=== PATIENT | male | born 1975 | race Hispanic/Latino ===

== ENCOUNTER 2018-09-13 19:30 | Emergency (ER) | payer BC ==
--- OUTSIDE RECORDS SUMMARY | 2018-09-13 19:35 | XMS REPORT ---
:1975 Author Organization eClinicalWorks Care Team Providers Name Role Phone Daisy Huy Provider Role Unavailable Allergies, Adverse Reactions, Alerts Substance Reaction Event Type N.K.D.A. Info Not Available Non Drug Allergy Problems Problem Type Condition Code Onset Dates Condition Status Problem Pure hypercholesterolemia E78.00 Active Problem Type 2 diabetes mellitus without E11.9 Active complication, without long-term current use of insulin Problem Essential hypertension I10 Active Assessment Essential hypertension I10 Active Assessment Pure hypercholesterolemia E78.00 Active Assessment Type 2 diabetes mellitus without E11.9 Active complication, without long-term current use of insulin Medications Medication Code Code Instructions Start End Status Dosage System Date Date Simvastatin ND 43803932247 20 MG Orally Active 1 tablet Once a day in the evening Farxiga ND 32124713792 5mg By Mouth August Active [facility] 2018 Lisinopril ND 03655572201 10 MG Orally Active 1 tablet Once a day MetFORMIN HCl ND 19276503014 750 MG Orally Active 1 tablet ER twice daily with evening meal Results Name Result Date Reference Range Unit Abnormality Flag HEMOGLOBIN A1C ----A1C 7.9 [id number] Summary Purpose eClinicalWorks Submission
--- OUTSIDE RECORDS SUMMARY | 2018-09-13 19:35 | XMS REPORT ---
:1975 Author Organization eClinicalWorks Care Team Providers Name Role Phone Tahmina Hu Provider Role Unavailable Allergies No Known Allergies Problems Problem Type Condition Code Onset Dates Condition Status Problem Pure hypercholesterolemia E78.00 Active Problem Type 2 diabetes mellitus without E11.9 Active complication, without long-term current use of insulin Problem Essential hypertension I10 Active Medications No Known Medications Results No Known Results Summary Purpose eClinicalWorks Submission
--- OUTSIDE RECORDS SUMMARY | 2018-09-13 19:35 | XMS REPORT ---
:1975 Author Organization eClinicalWorks Care Team Providers Name Role Phone Tahmina Hu Provider Role Unavailable Allergies, Adverse Reactions, Alerts Substance Reaction Event Type N.K.D.A. Info Not Available Non Drug Allergy Problems Problem Type Condition Code Onset Dates Condition Status Problem Pure hypercholesterolemia E78.00 Active Problem Type 2 diabetes mellitus without E11.9 Active complication, without long-term current use of insulin Problem Essential hypertension I10 Active Assessment Essential hypertension I10 Active Assessment Type 2 diabetes mellitus without E11.9 Active complication, without long-term current use of insulin Medications Medication Code Code Instructions Start End Status Dosage System Date Date Simvastatin ND 56386939071 20 MG Orally Active 1 tablet Once a day in the evening Lisinopril [facility] 94598579942 10 MG Orally Active 1 tablet Once a day MetFORMIN HCl ND 87112303505 750 MG Orally Active 1 tablet ER twice daily with evening meal Farxiga ND 05639951970 5mg By Mouth July 09August Active 1 [facility] 2017 Results No Known Results Summary Purpose eClinicalWorks Submission
--- OUTSIDE RECORDS SUMMARY | 2018-09-13 19:35 | XMS REPORT ---
[...] Start End Status Dosage System Date Date MetFORMIN HCl ND 52293280216 750 MG Orally Active 1 tablet ER twice daily with evening meal Farxiga ND 86698452200 5mg By Mouth August Active 1 [facility] 2018 Lisinopril ND 64903922885 10 MG Orally Active 1 tablet Once a day Simvastatin ND 56907181446 20 MG Orally Active 1 tablet Once a day in the evening Results No Known Results Summary Purpose eClinicalWorks Submission
[2018-09-13] MEDS ORDERED: METOCLOPRAMIDE 10 MG/2mL INJ ONE (20:52)
[2018-09-13] MEDS ORDERED: KETOROLAC 30 MG/ML INJ ONE (20:52)
[2018-09-13] MEDS ORDERED: NA CHLORIDE 0.9% 1,000 ML ONE (20:52)
--- NOTE | 2018-09-13 21:29 | EDPHYS ---
Physician Documentation [facility] Name: Anup Ordonez Age: 42 yrs Sex: Male : 1975 Arrival Date: 09/13/2018 Time: 19:31 Bed 14 Private MD: ED Physician Sinan Cabrera HPI: 09/13 21:23 This 42 yrs old Male presents to ER via Ambulatory with complaints of Cold kb Symptoms, Migraine. 21:23 The patient or guardian reports cough, that is intermittent, described as mild, with no kb sputum. The patient has experienced similar episodes in the past. The patient has not recently seen a physician. 21:24 Onset: The symptoms/episode began/occurred 3 day(s) ago. Severity of symptoms: At their kb worst the symptoms were moderate, in the emergency department the symptoms are unchanged. Modifying factors: The symptoms are alleviated by nothing, the symptoms are aggravated by nothing. Associated signs and symptoms: The patient has no apparent associated signs or symptoms. Pt reports cough, congestion and migraine since Wednesday. Historical: - Allergies: 19:38 No Known Allergies; aj1 - Home Meds: 19:38 Metformin Oral [Active]; Lisinopril Oral [Active]; Simvastatin Oral [Active]; aj1 - PMHx: 19:38 Diabetes - NIDDM; Hypertension; Hyperlipidemia; aj1 - Immunization history:: Flu vaccine is not up to date. - Social history:: Smoking status: Patient/guardian denies using tobacco. - Ebola Screening: : Patient denies travel to an Ebola-affected area in the 21 days before illness onset. ROS: 21:27 Constitutional: Negative for fever, chills, and weight loss, Neck: Negative for injury, kb pain, and swelling, Cardiovascular: Negative for chest pain, palpitations, and edema, Abdomen/GI: Negative for abdominal pain, nausea, vomiting, diarrhea, and constipation, Back: Negative for injury and pain, : Negative for injury, bleeding, discharge, and swelling, MS/Extremity: Negative for injury and deformity, Skin: Negative for injury, rash, and discoloration. 21:27 ENT: Positive for sinus congestion. 21:27 Respiratory: Positive for cough, Negative for dyspnea on exertion, hemoptysis, orthopnea, pleurisy, shortness of breath, sputum production, wheezing. 21:27 Neuro: Positive for headache. Exam: 21:28 Constitutional: This is a well developed, well nourished patient who is awake, alert, kb and in no acute distress. Head/Face: Normocephalic, atraumatic. ENT: Nares patent. No nasal discharge, no septal abnormalities noted. Tympanic membranes are normal and external auditory canals are clear. Oropharynx with no redness, swelling, or masses, exudates, or evidence of obstruction, uvula midline. Mucous membranes moist. Neck: Trachea midline, no thyromegaly or masses palpated, and no cervical lymphadenopathy. Supple, full range of motion without nuchal rigidity, or vertebral point tenderness. No Meningismus. Chest/axilla: Normal chest wall appearance and motion. Nontender with no deformity. No lesions are appreciated. Cardiovascular: Regular rate and rhythm with a normal S1 and S2. No gallops, murmurs, or rubs. Normal PMI, no JVD. No pulse deficits. Respiratory: Lungs have equal breath sounds bilaterally, clear to auscultation and percussion. No rales, rhonchi or wheezes noted. No increased work of breathing, no retractions or nasal flaring. Abdomen/GI: Soft, non-tender, with normal bowel sounds. No distension or tympany. No guarding or rebound. No evidence of tenderness throughout. Skin: Warm, dry with normal turgor. Normal color with no rashes, no lesions, and no evidence of cellulitis. MS/ Extremity: Pulses equal, no cyanosis. Neurovascular intact. Full, normal range of motion. Neuro: Awake and alert, GCS 15, oriented to person, place, time, and situation. Cranial nerves II-XII grossly intact. Motor strength 5/5 in all extremities. Sensory grossly intact. Cerebellar exam normal. Normal gait. Vital Signs: 19:38 BP 133 / 79; Pulse 76; Resp 18; Temp 97.8; Pulse Ox 98% on R/A; Weight 86.18 kg (R); aj1 Height 5 ft. 11 in. (180.34 cm) (R); 21:00 BP 129 / 81; Pulse 79; Resp 18; Pulse Ox 100% on R/A; aa1 22:14 BP 125 / 70; Pulse 77; Resp 18; Temp 98.0; Pulse Ox 97% on R/A; Pain 0/10; aa1 19:38 Body Mass Index 26.50 (86.18 kg, 180.34 cm) aj1 MDM: 19:52 Patient medically screened. kb 21:23 Data reviewed: vital signs, nurses notes. Data interpreted: Pulse oximetry: on room air kb is 98 %. Interpretation: normal. 21:27 Counseling: I had a detailed discussion with the patient and/or guardian regarding: the kb historical points, exam findings, and any diagnostic results supporting the discharge/admit diagnosis, lab results, the need for outpatient follow up, a family practitioner, to return to the emergency department if symptoms worsen or persist or if there are any questions or concerns that arise at home. 09/13 20:07 Order name: Strep; Complete Time: 20:48 kb 09/13 20:07 Order name: Flu; Complete Time: 21:04 kb 09/13 20:48 Order name: Throat Culture EDMS 09/13 20:07 Order name: IV Start; Complete Time: 20:59 kb Administered Medications: 20:50 Drug: NS 0.9% 1000 ml Route: IV; Rate: 1000 ml; Site: right antecubital; aa1 22:15 Follow up: IV Status: Completed infusion; IV Intake: 1000ml aa1 20:50 Drug: Reglan 10 mg Route: IVP; Site: right antecubital; aa1 21:50 Follow up: Response: No adverse reaction; Pain is decreased aa1 20:50 Drug: TORadol - Ketorolac 15 mg Route: IVP; Site: right antecubital; aa1 21:50 Follow up: Response: No adverse reaction; Pain is decreased aa1 Disposition: 09/14 07:12 Co-signature as Attending Physician, Sinan Cabrera MD I agree with the assessment and abram plan of care. Disposition: 09/13/18 21:28 Discharged to Home. Impression: Acute upper respiratory infection, unspecified, Migraine. - Condition is Stable. - Discharge Instructions: Upper Respiratory Infection, Adult, Eieo-gi-Nhak, Migraine Headache, Svgq-eg-Jlry, Viral Respiratory Infection, Kslc-Cg-Aylc. - Medication Reconciliation Form, Thank You Letter, Antibiotic Education, Prescription Opioid Use form. - Follow up: Emergency Department; When: As needed; Reason: Worsening of condition. Follow up: Private Physician; When: 2 - 3 days; Reason: Recheck today's complaints, Continuance of care, Re-evaluation by your physician. Signatures: Dispatcher [employer] EDYara Martin, RASTA BAXTER-Chioma Anaya, RN RN aj1 Makeda Ozuna RN RN aa1 Sinan Cabrera MD MD cha Corrections: (The following items were deleted from the chart) 09/13 22:16 21:28 09/13/2018 21:28 Discharged to Home. Impression: Acute upper respiratory aa1 infection, unspecified; Migraine. Condition is Stable. Forms are Medication Reconciliation Form, Thank You Letter, Antibiotic Education, Prescription Opioid Use. Follow up: Emergency Department; When: As needed; Reason: Worsening of condition. Follow up: Private Physician; When: 2 - 3 days; Reason: Recheck today's complaints, Continuance of care, Re-evaluation by your physician. kb
--- NOTE | 2018-09-13 21:29 | ER ---
Nurse's Notes [facility] Name: Anup Ordonez Age: 42 yrs Sex: Male : 1975 Arrival Date: 09/13/2018 Time: 19:31 Bed 14 Private MD: Diagnosis: Acute upper respiratory infection, unspecified;Migraine Presentation: 09/13 19:36 Presenting complaint: Patient states: "I started with a cold on Wednesday night, but I aj1 suzie got a migraine with it but I've had it since then. I haven't been able to get rid of the migraine or the cold" Reports subjective fever/. Transition of care: patient was not received from another setting of care. Onset of symptoms was September 2018. Risk Assessment: Do you want to hurt yourself or someone else? Patient reports no desire to harm self or others. Initial Sepsis Screen: Does the patient meet any 2 criteria? No. Patient's initial sepsis screen is negative. Does the patient have a suspected source of infection? No. Patient's initial sepsis screen is negative. Care prior to arrival: None. 19:36 Method Of Arrival: Ambulatory [facility] 19:36 Acuity: JOHN 4 aj1 Triage Assessment: 19:38 General: Appears in no apparent distress. comfortable, Behavior is calm, cooperative, aj1 appropriate for age. Pain: Complains of pain in forehead Pain currently is 8 out of 10 on a pain scale. EENT: Reports nasal congestion nasal discharge. Neuro: Level of Consciousness is awake, alert, obeys commands. Cardiovascular: Patient's skin is warm and dry. Respiratory: Reports cough that is persistent Airway is patent Respiratory effort is even, unlabored, Respiratory pattern is regular, symmetrical. Historical: - Allergies: 19:38 No Known Allergies; aj1 - Home Meds: 19:38 Metformin Oral [Active]; Lisinopril Oral [Active]; Simvastatin Oral [Active]; aj1 - PMHx: 19:38 Diabetes - NIDDM; Hypertension; Hyperlipidemia; aj1 - Immunization history:: Flu vaccine is not up to date. - Social history:: Smoking status: Patient/guardian denies using tobacco. - Ebola Screening: : Patient denies travel to an Ebola-affected area in the 21 days before illness onset. Screenin:00 Abuse screen: Denies threats or abuse. Denies injuries from another. Nutritional aa1 screening: No deficits noted. Tuberculosis screening: No symptoms or risk factors identified. Fall Risk None identified. Assessment: 20:00 General: Appears in no apparent distress. comfortable, Behavior is calm, cooperative, aa1 appropriate for age. Pain: Complains of pain in face and forehead Quality of pain is described as aching, throbbing, Is continuous. Neuro: Level of Consciousness is awake, alert, obeys commands, Oriented to person, place, time, situation, Moves all extremities. Full function Gait is steady, Speech is normal, Facial symmetry appears normal, Pupils are PERRLA, Reports headache. Cardiovascular: Heart tones S1 S2 Rhythm is. Respiratory: Airway is patent Respiratory effort is even, unlabored, Respiratory pattern is regular, symmetrical. GI: No signs and/or symptoms were reported involving the gastrointestinal system. : No signs and/or symptoms were reported regarding the genitourinary system. EENT: No signs and/or symptoms were reported regarding the EENT system. Derm: Skin is intact, is healthy with good turgor, Skin is pink, warm \\T\\ dry. Musculoskeletal: Circulation, motion, and sensation intact. Capillary refill < 3 seconds. 22:14 Reassessment: Patient appears in no apparent distress at this time. Patient is alert, aa1 oriented x 3, equal unlabored respirations, skin warm/dry/pink. Discussed d/c \\T\\ f/u instructions with pt; denies questions or concerns at this time. Ambulates to lobby with steady gait. Patient denies pain at this time. Patient states feeling better. Vital Signs: 19:38 BP 133 / 79; Pulse 76; Resp 18; Temp 97.8; Pulse Ox 98% on R/A; Weight 86.18 kg (R); aj1 Height 5 ft. 11 in. (180.34 cm) (R); 21:00 BP 129 / 81; Pulse 79; Resp 18; Pulse Ox 100% on R/A; aa1 22:14 BP 125 / 70; Pulse 77; Resp 18; Temp 98.0; Pulse Ox 97% on R/A; Pain 0/10; aa1 19:38 Body Mass Index 26.50 (86.18 kg, 180.34 cm) aj1 ED Course: 19:31 Patient arrived in ED. ds1 19:37 Triage completed. aj1 19:38 Arm band placed on Patient placed in waiting room, Patient notified of wait time. aj1 19:51 [facility] Parks [facility]C [facility] kb 19:52 Sinan Cabrera MD is Attending Physician. kb 20:00 Patient has correct armband on for positive identification. Placed in gown. Bed in low aa1 position. Call light in reach. Pulse ox on. NIBP on. 20:44 Makeda Ozuna, RN is Primary Nurse. aa1 20:45 Inserted saline lock: 20 gauge in right forearm, using aseptic technique. aa1 22:14 No provider procedures requiring assistance completed. IV discontinued, intact, aa1 bleeding controlled, No redness/swelling at site. Pressure dressing applied. Administered Medications: 20:50 Drug: NS 0.9% 1000 ml Route: IV; Rate: 1000 ml; Site: right antecubital; aa1 22:15 Follow up: IV Status: Completed infusion; IV Intake: 1000ml aa1 20:50 Drug: Reglan 10 mg Route: IVP; Site: right antecubital; aa1 21:50 Follow up: Response: No adverse reaction; Pain is decreased aa1 20:50 Drug: TORadol - Ketorolac 15 mg Route: IVP; Site: right antecubital; aa1 21:50 Follow up: Response: No adverse reaction; Pain is decreased aa1 Intake: 22:15 IV: 1000ml; Total: 1000ml. aa1 Outcome: 21:28 Discharge ordered by . kb 22:14 Discharged to home ambulatory. aa1 22:14 Condition: good 22:14 Discharge instructions given to patient, Instructed on discharge instructions, follow up and referral plans. Demonstrated understanding of instructions, follow-up care. 22:16 Patient left the ED. aa1 Signatures: Yara Parks FNP-C FNP-Chioma Anaya RN RN aj1 Makeda Ozuna, GEOVANNA RN aa1 Michaela Cottrell ds1
[2018-09-13 22:40] VITALS: BP 125/70; TEMP 98; O2SAT 97
== END 2018-09-13 22:16 | disposition home or self-care (01) ==
LOC: ER 19:30
DX: J06.9 Acute upper respiratory infection, unspecified (principal); E11.9 Type 2 diabetes mellitus without complications; I10 Essential (primary) hypertension; E78.5 Hyperlipidemia, unspecified; Z79.84 Long term (current) use of oral hypoglycemic drugs
CPT/HCPCS: 96361; 87070; 87081; 87804 ×2; 96375; 96374; 99283; J2765; J7030

== ENCOUNTER 2019-08-05 13:12 | Emergency (ER) | payer BC ==
--- OUTSIDE RECORDS SUMMARY | 2019-08-05 13:15 | XMS REPORT ---
:1975 Author Organization eClinicalWorks Care Team Providers Name Role Phone Betsy Hu Provider Role Unavailable Allergies, Adverse Reactions, Alerts Substance Reaction Event Type N.K.D.A. Info Not Available Non Drug Allergy Problems Problem Type Condition Code Onset Dates Condition Statu s Assessment Essential hypertension I10 Activ e Assessment Pure hypercholesterolemia E78.00 Ac tive Problem Other chronic pain G89.29 Active Problem Type 2 diabetes mellitus without E11.9 Active complication, without long-term current use of insulin Problem Low back pain M54.5 Active Assessment Type 2 diabetes mellitus without E11.9 Active complication, without long-term current use of insulin Problem Pure hypercholesterolemia E78.00 Ac tive Problem Essential hypertension I10 Activ e Medications Medication Code Code Instructions Start End Status Dosage System Date Date Lisinopril [facility] 33311175792 10 Orally Once a Active 1 tablet day Simvastatin ND 30505884244 20 MG Orally Active 1 t ablet Once a day in the evening Farxiga ND 61876921227 5mg By Mouth Active 1 Dailly MetFORMIN HCl [facility] 15461348621 750 mg Orally Active 1 tablet ER twice daily with evening meal Results No Known Results Summary Purpose eClinicalWorks Submission
--- OUTSIDE RECORDS SUMMARY | 2019-08-05 13:15 | XMS REPORT | Continuity of Care Document ---
:1975 Author Organization [facility] t Address [address] [place] [address] Care Team Providers Name Role Phone Unavailable Unavailable Unavailable Problems Condition Condition Condition Status Onset Resolution Last Treating Co mments Source Name Details Category Date Date Treatment Clinician Date Pure Pure Problem Active [facility] hyper[facility]ole hyperchole Chantelle kes - sterolemia sterolemia Me moria l [facility] Clinics Type 2 Type [address] [facility] - mellitus mellitus Memori a without without l complicati complicati Ou tpati on, on, ent without without Clinics long-term long-term current current use of use of insulin insulin Essential Essential Problem Active [facility] hypertensi hypertensi Chantelle kes - on on [facility] Other Other Problem Active [facility] chronic chronic [facility] - pain pain [facility] Low back Low back Problem [facility] Allergies, Adverse Reactions, Alerts This patient has no known allergies or adverse reactions. Medications Ordered Filled Start Stop Current Ordering Indication Dosage Frequency Signature Comments Components Source Medication Medication Date Date Medication? Clinician (SIG) Name Name Simvastatin Simvastatin Yes Betsy [address] [facility] [place] [facility] [place] [facility] - evening [facility] l [facility]ics Lisinopril Lisinopril Yes Betsy [address] [facility] [place] [facility] MetFORMIN MetFORMIN Yes Betsy [address] [facility] HCl ER HCl ER [place] with [facility] - evening [facility]oria meal l [facility] Clinics No Betsy [address] [facility] 07-15 [place] [facility] - 00:00 Memoria :00 l [facility] ent Clinics Procedures This patient has no known procedures. Encounters Start End Encounter Admission Attending Care Care Encounter Source Date/Time Date/Time Type Type Clinicians Facility Department ID 2019-06-02 2019-06-02 [facility] [id number] [facility] 08[facility] [facility] Medicine Outpati ent Clinics 2019-01-30 2019-01-30 [facility] [id number] [facility] 10:20[facility]00 10:20:[address] [facility] Medicine Outpati [facility] Clinics 2018-11-07 2018-11-07 [facility] [id number] [facility] 09:40[facility]00 09:40:[address] [facility] Medicine Outpati [facility] Clinics 2018-08-08 2018-08-08 [facility] [id number] 10:40:00 10:40:00 [facility] Medicine Outpati ent Clinics 2018-02-23 2018-02-23 [facility] [id number] 14:30:00 14:30:00 [facility] Medicine Outpati ent Clinics 2017-10-12 2017-10-12 [facility] [id number] 09:58:00 09:58:[address] [facility] Medicine Outpati ent Clinics 2017-08-18 2017-08-18 [facility] [id number] 13:30:00 13:30:00 [facility] Medicine Outpati ent Clinics 2017-07-09 2017-07-09 [facility] [id number] 08:58:00 08:58:[address] [facility] Medicine Outpati ent Clinics 2017-07-07 2017-07-07 [facility] [id number] 15[facility]00:00 15:00:00 [facility] Medicine Outpati ent Clinics Results This patient has no known results.
[2019-08-05] MEDS ORDERED: METOCLOPRAMIDE 10 MG/2mL INJ ONE (14:54)
[2019-08-05] MEDS ORDERED: dexAMETHasone 10 MG/ML VIAL ONE (14:54)
[2019-08-05] MEDS ORDERED: KETOROLAC 30 MG/ML INJ ONE (14:55)
[2019-08-05] MEDS ORDERED: NA CHLORIDE 0.9% 1,000 ML ONE (14:55)
--- NOTE | 2019-08-05 15:12 | RAD REPORT ---
EXAM DESCRIPTION: CT - Stone Protocol - 08/05/2019 3:04 pm CLINICAL HISTORY: Flank pain. back pain, hematuria COMPARISON: <Comparisons> TECHNIQUE: Axial images were obtained without oral or IV contrast. Lack of contrast limits solid org an and vascular assessment. The [id number]-[id number] spans the entirety of the system partially obscuring uppermost abdomen and lung bases. Coronal reformatted images were obtained and reviewed. All CT scans are performed using dose optimization technique as appropriate and may include automated exposure control or mA/KV adjustment according to patient size. FINDINGS: Mild interstitial opacities are present in both lung bases. Imaged portions of the liver and spleen show no suspicious findings on non-contrast imaging.Small fat containing umbilical hernia. The pancreas and adrenal glands are normal. No pathologic lymphadenopat hy in the abdomen or pelvis. No urinary tract stones or obstructive uropathy. No bowel obstruction, free air, free fluid or abscess. Appendectomy.Moderate stool throughout the col on. Small to moderate fat containing right inguinal hernia. Posterior disc bulges are present lower lumbar spine. IMPRESSION: No urinary tract stones or obstructive uropathy.
[2019-08-05 16:05] LABS: Urine Blood 1+ (NEG); Urine Glucose 2+ (NEG); Urine Protein NEGATIVE (NEG); Urine Specific Gravity 1.015 (1.005-1.030)
--- NOTE | 2019-08-05 16:15 | EDPHYS ---
Physician Documentation [facility] Name: Anup Ordonez Age: 43 yrs Sex: Male : 1975 Arrival Date: 08/05/2019 Time: 13:13 Bed 17 Private MD: ED Physician Brenton Santillan HPI: 08/04 14:40 This 43 yrs old Male presents to ER via Ambulatory with complaints of rn Headache, Dizziness, Nausea, Low Back Pain. 14:40 The patient complains of pain to the . The patient describes the headache as aching. rn Onset: The symptoms/episode began/occurred 5 day(s) ago. Severity of symptoms: At its worst the pain was moderate, in the emergency department the pain is unchanged. The symptoms are alleviated by nothing. the symptoms are aggravated by nothing. The patient has experienced similar episodes in the past. Reports hx of migraines in past but not recently, + significant other sick with chills, + 5 days of headache/fatigue/muscle aches/dark urine/nausea/dehydration. No head injury. No focal neurological complaints. . Historical: - Allergies: 14:06 No Known Allergies; ca1 - Home Meds: 14:06 lisinopril Oral [Active]; Metformin Oral [Active]; Simvastatin Oral [Active]; Farxiga ca1 oral oral [Active]; - PMHx: 14:06 Diabetes - NIDDM; Hyperlipidemia; Hypertension; ca1 - PSHx: 14:06 None; ca1 - Immunization history:: Adult Immunizations up to date. - Social history:: Smoking status: Patient denies any tobacco usage or history of. - Family history:: not pertinent. - Hospitalizations: : No recent hospitalization is reported. ROS: 14:40 Constitutional: + chills Eyes: Negative for injury, pain, redness, and discharge, ENT: rn Negative for injury, pain, and discharge, Neck: Negative for injury, pain, and swelling, Cardiovascular: Negative for chest pain, palpitations, and edema, Respiratory: Negative for shortness of breath, cough, wheezing, and pleuritic chest pain, Abdomen/GI: Negative for abdominal pain, vomiting, and constipation, Back: + low back pain : Negative for injury, bleeding, discharge, and swelling, MS/Extremity: Negative for injury and deformity, Skin: Negative for injury, rash, and discoloration, Neuro: Negative for numbness, tingling, and seizure. Exam: 14:40 Constitutional: This is a well developed, well nourished patient who is awake, alert, rn and in no acute distress. Head/Face: Normocephalic, atraumatic. Neck: Supple, full range of motion without nuchal rigidity, or vertebral point tenderness. No Meningismus. Cardiovascular: Regular rate and rhythm. No pulse deficits. Respiratory: No increased work of breathing, no retractions or nasal flaring. Abdomen/GI: soft, non-tender Back: No spinal tenderness. No lesions. Skin: Warm, dry MS/ Extremity: Pulses equal, no cyanosis. Neurovascular intact. Full, normal range of motion. Equal circumference. Neuro: Awake and alert, GCS 15, oriented to person, place, time, and situation. Cranial nerves II-XII grossly intact. Motor strength 5/5 in all extremities. Sensory grossly intact. Cerebellar exam normal. Vital Signs: 14:03 BP 106 / 74; Pulse 92; Resp 16 S; Temp 98.1(TE); Pulse Ox 99% on R/A; Weight 88.45 kg ca1 (R); Height 5 ft. 11 in. (180.34 cm) (R); 15:00 BP 116 / 73; Pulse 79; Resp 17; Pulse Ox 100% ; bp 16:38 BP 118 / 65; Pulse 81; Resp 16; Temp 98.5; Pulse Ox 99% ; bp 14:03 Body Mass Index 27.20 (88.45 kg, 180.34 cm) ca1 [place] Coma Score: 16:10 Eye Response: spontaneous(4). Verbal Response: oriented(5). Motor Response: obeys rn commands(6). Total: 15. MDM: 14:25 Patient medically screened. rn 16:10 Differential diagnosis: migraine, viral syndrome, kidney stone, COVID. Data reviewed: rn vital signs, nurses notes, lab test result(s), radiologic studies, CT scan, and as a result, I will discharge patient. Counseling: I had a detailed discussion with the patient and/or guardian regarding: the historical points, exam findings, and any diagnostic results supporting the discharge/admit diagnosis, lab results, radiology results, the need for outpatient follow up, to return to the emergency department if symptoms worsen or persist or if there are any questions or concerns that arise at home. Response to treatment: the patient's symptoms have markedly improved after treatment, and as a result, I will discharge patient. Special discussion: I discussed with the patient/guardian in detail that at this point there is no indication for admission to the hospital. It is understood, however, that if the symptoms persist or worsen the patient needs to return immediately for re-evaluation. ED course: Pt improved after meds and fluids, CT no acute finding other than interstitial prominence at bases of lungs, that in combination of headache/myalgias/dehydration/chills and sick contact, most consistent with viral syndrome like COVID. COVID testing performed, will call with results. Told him to assume it is positive, quarantine, and expecting slow recovery. Normal vitals. . 08/04 14:34 Order name: Isabella Screen Profile; Complete Time: 16:07 bp 08/04 14:34 Order name: COVID-19 bp 08/04 14:51 Order name: CT Stone Protocol; Complete Time: 15:16 rn 08/04 14:52 Order name: Urine Dipstick--Ancillary (enter results); Complete Time: 16:07 eb 08/04 14:40 Order name: IV Start; Complete Time: 15:00 rn 08/04 14:40 Order name: Urine Dipstick-Ancillary (obtain specimen); Complete Time: 15:00 rn Administered Medications: 15:00 Drug: NS 0.9% 1000 ml Route: IV; Rate: 1 bolus; Site: right forearm; bp 16:40 Follow up: IV Status: Completed infusion; IV Intake: 1000ml bp 15:00 Drug: Ketorolac 30 mg Route: IVP; Site: right forearm; bp 16:40 Follow up: Response: No adverse reaction; Pain is decreased bp 15:00 Drug: Reglan 10 mg Route: IVP; Site: right forearm; bp 16:40 Follow up: Response: Pain is decreased bp 15:00 Drug: Decadron - Dexamethasone 10 mg Route: IVP; Site: right forearm; bp 16:41 Follow up: Response: Pain is decreased bp Disposition: 08/05/19 16:14 Discharged to Home. Impression: Viral Syndrome. - Condition is Stable. - Discharge Instructions: Dehydration, Adult, Migraine Headache, COVID-19. - Medication Reconciliation Form, Thank You Letter, Antibiotic Education, Prescription Opioid Use form. - Follow up: Private Physician; When: As needed; Reason: Recheck today's complaints, Re-evaluation by your physician. - Problem is new. - Symptoms have improved. Signatures: Dispatcher [employer] EDBrenton Casey MD MD rn Peltier, Brian RN RN bp Acob, Shanel RN RN [facility] Corrections: (The following items were deleted from the chart) 16:41 16:14 08/05/2019 16:14 Discharged to Home. Impression: Viral Syndrome. Condition is bp Stable. Forms are Medication Reconciliation Form, Thank You Letter, Antibiotic Education, Prescription Opioid Use. Follow up: Private Physician; When: As needed; Reason: Recheck today's complaints, Re-evaluation by your physician. Problem is new. Symptoms have improved. rn
--- NOTE | 2019-08-05 16:15 | ER ---
Nurse's Notes [facility] Name: Anup Ordonez Age: 43 yrs Sex: Male : 1975 Arrival Date: 08/05/2019 Time: 13:13 Bed 17 Private MD: Diagnosis: Viral Syndrome Presentation: 08/04 14:03 Chief complaint: Patient states: I've had a migraine for 5 days straight, making me ca1 nauseous, lightheaded. I also got a low back pain, right in the middle. Denies fever. Coronavirus screen: Proceed with normal triage. Patient denies a cough. Patient denies shortness of breath or difficulty breathing. Patient denies measured and/or subjective temperature greater than 100.4F prior to today's visit. Patient denies travel on a cruise ship or to a country the [facility] currently lists as an affected area. Patient denies contact with known and/or suspected case of COVID-19. Ebola Screen: Patient negative for fever greater than or equal to 101.5 degrees Fahrenheit, and additional compatible Ebola Virus Disease symptoms Patient denies exposure to infectious person. Patient denies travel to an Ebola-affected area in the 21 days before illness onset. No symptoms or risks identified at this time. Initial Sepsis Screen: Does the patient meet any 2 criteria? No. Patient's initial sepsis screen is negative. Does the patient have a suspected source of infection? No. Patient's initial sepsis screen is negative. Risk Assessment: Do you want to hurt yourself or someone else? Patient reports no desire to harm self or others. Onset of symptoms was August 05, 2019. 14:03 Method Of Arrival: Ambulatory ca1 14:03 Acuity: JOHN 3 ca1 Triage Assessment: 14:15 Headache History: The patient has had previous headaches and this one is similar to bp previous episodes. General: Appears in no apparent distress. uncomfortable, Behavior is cooperative, appropriate for age, anxious. Pain: Complains of pain in head Pain currently is 5 out of 10 on a pain scale. Pain began 2-3 days ago. Also complains of no other associated symptoms. EENT: No deficits noted. Neuro: Reports headache. Cardiovascular: No deficits noted. Respiratory: No deficits noted. GI: No signs and/or symptoms were reported involving the gastrointestinal system. : No signs and/or symptoms were reported regarding the genitourinary system. Derm: No deficits noted. Musculoskeletal: No deficits noted. Historical: - Allergies: 14:06 No Known Allergies; ca1 - Home Meds: 14:06 lisinopril Oral [Active]; Metformin Oral [Active]; Simvastatin Oral [Active]; Farxiga ca1 oral oral [Active]; - PMHx: 14:06 Diabetes - NIDDM; Hyperlipidemia; Hypertension; ca1 - PSHx: 14:06 None; ca1 - Immunization history:: Adult Immunizations up to date. - Social history:: Smoking status: Patient denies any tobacco usage or history of. - Family history:: not pertinent. - Hospitalizations: : No recent hospitalization is reported. Screenin:15 Abuse screen: Denies threats or abuse. Denies injuries from another. Nutritional bp screening: No deficits noted. Tuberculosis screening: No symptoms or risk factors identified. Fall Risk None identified. Assessment: 14:15 General: SEE TRIAGE NOTE. bp 14:15 Pain: Complains of pain in head. bp 15:00 Reassessment: PT TO CT. bp 16:38 Reassessment: PT D/C HOME AMBULATORY WITH FAMILY, DX WITH VIRAL SYNDROME. bp Vital Signs: 14:03 BP 106 / 74; Pulse 92; Resp 16 S; Temp 98.1(TE); Pulse Ox 99% on R/A; Weight 88.45 kg ca1 (R); Height 5 ft. 11 in. (180.34 cm) (R); 15:00 BP 116 / 73; Pulse 79; Resp 17; Pulse Ox 100% ; bp 16:38 BP 118 / 65; Pulse 81; Resp 16; Temp 98.5; Pulse Ox 99% ; bp 14:03 Body Mass Index 27.20 (88.45 kg, 180.34 cm) ca1 [place] Coma Score: 16:10 Eye Response: spontaneous(4). Verbal Response: oriented(5). Motor Response: obeys rn commands(6). Total: 15. ED Course: 13:13 Patient arrived in ED. as 14:05 Triage completed. ca1 14:06 Arm band placed on right wrist. ca1 14:15 Patient has correct armband on for positive identification. Bed in low position. Call bp light in reach. Side rails up X2. 14:25 Brenton Santillan MD is Attending Physician. rn 14:29 Rod Doherty, RN is Primary Nurse. bp 15:00 Inserted saline lock: 20 gauge in right forearm, using aseptic technique. Blood bp collected. 15:04 CT Stone Protocol In Process Unspecified. EDMS 16:38 No provider procedures requiring assistance completed. IV discontinued, intact, bp bleeding controlled, No redness/swelling at site. Pressure dressing applied. Administered Medications: 15:00 Drug: NS 0.9% 1000 ml Route: IV; Rate: 1 bolus; Site: right forearm; bp 16:40 Follow up: IV Status: Completed infusion; IV Intake: 1000ml bp 15:00 Drug: Ketorolac 30 mg Route: IVP; Site: right forearm; bp 16:40 Follow up: Response: No adverse reaction; Pain is decreased bp 15:00 Drug: Reglan 10 mg Route: IVP; Site: right forearm; bp 16:40 Follow up: Response: Pain is decreased bp 15:00 Drug: Decadron - Dexamethasone 10 mg Route: IVP; Site: right forearm; bp 16:41 Follow up: Response: Pain is decreased bp Intake: 16:40 IV: 1000ml; Total: 1000ml. bp Outcome: 16:14 Discharge ordered by MD. rn 16:38 Discharged to home ambulatory, with family. bp 16:38 Condition: stable 16:38 Discharge instructions given to patient, Instructed on discharge instructions, follow up and referral plans. Demonstrated understanding of instructions, follow-up care. 16:41 Patient left the ED. bp Addendum: 08/08/2019 12:47 Addendum: Other Dr. Rodriguez notified patient of positive COVID results. Pt reports he s s is feeling well, and verbalizes understanding importance to follow up with PCP as needed and to return to ER with any worsening of symptoms. Signatures: Dispatcher [employer] Becky Villagran Roman, MD MD rn Smirch, Shelby, RN RN ss Rod Doherty RN RN bp Shanel Kohli RN RN ca1
[2019-08-05 16:49] VITALS: BP 118/65; TEMP 98.5; O2SAT 99
== END 2019-08-05 16:41 | disposition home or self-care (01) ==
LOC: ER 13:12
DX: U07.1 COVID-19 (principal); B34.9 Viral infection, unspecified; I10 Essential (primary) hypertension; E11.9 Type 2 diabetes mellitus without complications; E78.5 Hyperlipidemia, unspecified
CPT/HCPCS: 96361; 36415; 86308; 81003; 76377; 74176; 96375; 96374; 99284; U0001; J2765; J1100; J7030